=== PATIENT | female | born 1940 | race African-American/Black ===

== ENCOUNTER 2020-04-11 00:54 | Inpatient (IN) | payer MEDICARE, MEDICAID ==
[~2020-04-11] VITALS: Ht 167.6 cm; Wt 104.3 kg
[~2020-04-11 00:54] MED LIST: Blood Sugar Diagnostic TEST; DILT30TA38 PO; FERR325T23 PO; HYDR-3927 PO; Isosorb Dinit/Hydralazine Hcl PO; LOV30 SUBCUT; Lactulose PO; Sertraline Hcl PO
[2020-04-11] MEDS ORDERED: LORAZEPAM 2MG/ML CPJ IV ONE (02:30)
[2020-04-11] MEDS ORDERED: SODIUM CHLORIDE 0.9% 1,000 ML IV ONE ×2 (02:30→03:04)
[2020-04-11 02:39] LABS: CHLORIDE 100 mEq/L (98-107); HEMATOCRIT. 37.5 % (36.0-48.0); MEAN CORPUSCULAR HEMOGLOBIN 31.8 pg (28.0-32.0); MEAN CORPUSCULAR VOLUME 99.3 fL (81.0-99.0); MEAN PLATELET VOLUME 9.7 fl (7.4-10.4); PLATELET 230 x1000/uL (130-400); RED BLOOD CELL COUNT 3.78 mill/uL (4.2-5.4); RED CELL DISTRIBUTION WIDTH 15.2 % (11.6-14.6)
[2020-04-11 02:55] LABS: PLATELET ESTIMATE NORMAL
[2020-04-11] MEDS ORDERED: CLINDAMYCIN 600 MG in DEXTROSE 5% WATER 50 ML IV ONE (03:15)
[2020-04-11] MEDS ORDERED: INSULIN REGULAR (HUMULIN R) 300UNITS/3ML SUBCUT SCH (03:15)
[2020-04-11] MEDS ORDERED: VANCOMYCIN 1 G PREMIX 200 ML IV ONE (03:15)
[2020-04-11] MEDS ORDERED: PIPERACILLIN/TAZ 3.375G PREMIX 50 ML IV ONE (03:15)
[2020-04-11 03:28] LABS: PROTHROMBIN TIME 11.1 sec (9.6-11.0)
[2020-04-11] MEDS ORDERED: PIPERACILLIN/TAZOBACTAM 3.375 G in DEXT 5% WATER 100 ML IV SCH ×2 (03:45→16:00)
[2020-04-11] MEDS ORDERED: CLINDAMYCIN 600MG PREMIX 50 ML IV SCH (04:00)
[2020-04-11] MEDS ORDERED: ONDANSETRON HCL 4MG/2ML INJ IV PRN (09:00)
[2020-04-11 09:29] LABS: MEAN CORPUSCULAR VOLUME 96.4 fL (81.0-99.0); MEAN PLATELET VOLUME 8.6 fl (7.4-10.4); PLATELET 206 x1000/uL (130-400); RED BLOOD CELL COUNT 3.73 mill/uL (4.2-5.4); RED CELL DISTRIBUTION WIDTH 14.7 % (11.6-14.6)
[2020-04-11] MEDS: BLOOD SUGAR DIAGNOSTIC STRIP TEST SCH ×4 (09:57→21:31)
[2020-04-11] MEDS ORDERED: PIPERACILLIN/TAZ 3.375G PREMIX 50 ML IV SCH (10:15)
[2020-04-11] MEDS ORDERED: INSULIN GLARGINE UD 100 UNITS/ML SYR SUBCUT SCH (10:15)
[2020-04-11 10:25] LABS: NUCLEATED RED BLOOD CELLS 1 /100 WBC; PLATELET ESTIMATE NORMAL
[2020-04-11] MEDS: SODIUM CHLORIDE 0.9% 1,000 ML IV SCH ×2 (10:49→23:19)
[2020-04-11] MEDS: INSULIN LISPRO 100 UNITS/ML SUBCUT SCH ×3 (13:24→21:00)
[2020-04-11 13:42] LABS: CLARITY URINE CLOUDY (CLEAR); COLOR URINE YELLOW (YELLOW); KETONES URINE TRACE (NEGATIVE); LEUKOCYTE ESTERASE URINE 3+ (NEGATIVE); NITRITE URINE NEGATIVE (NEGATIVE); OCCULT BLOOD URINE 1+ (NEGATIVE); PH URINE 7.5 (4.5-8.0); PROTEIN URINE 1+ (NEGATIVE); SPECIFIC GRAVITY URINE 1.025 (1.005-1.030); UROBILINOGEN URINE 0.2 E.U./dL (0.2-1.0)
[2020-04-11] MEDS ORDERED: RISPERIDONE 0.5MG TABLET PO SCH (16:45)
[2020-04-11 17:35] LABS: BG BASE EXCESS 0.5 mmol/L (-2.0-2.0); BG CARBOXYHEMOGLOBIN 0.3 % (0.5-1.5); BG DEOXYHEMOGLOBIN 0.3 % (0.0-5.0); BG FRACTION INSPIRED OXYGEN 100; BG HCO3 ACT 25.4 mmol/L (22.0-26.0); BG METHEMOGLOBIN 0.3 % (0.0-1.5); BG OXYGEN SATURATION 99.7 % (92.0-98.5); BG OXYHEMOGLOBIN 99.1 % (94.0-97.0); BG PCO2 41.9 mmHg (35.0-45.0); BG PO2 392.4 mmHg (75.0-100.0); BG SAMPLE SITE RIGHT RADIAL; BG TOTAL HEMOGLOBIN 12.7 g/dL (12.0-18.0); BG VENT MODE MASK - NRB
[2020-04-11] MEDS ORDERED: PIPERACILLIN/TAZ 3.375G PREMIX 50 ML IV NR (21:42)
[2020-04-11 23:30] VITALS: BP 132/58
[2020-04-12] VITALS (11 sets, daily range): BP systolic 106–131; BP diastolic 54–88
[2020-04-12] MEDS: RISPERIDONE 0.5MG TABLET PO SCH ×2 (01:33→11:30)
[2020-04-12] MEDS: INSULIN GLARGINE UD 100 UNITS/ML SYR SUBCUT SCH ×3 (01:40→22:00)
[2020-04-12] MEDS: MORPHINE SULFATE 2 MG/ML CPJ (NOT FOR IM USE) IV PRN ×2 (03:57→16:46)
[2020-04-12] MEDS: BLOOD SUGAR DIAGNOSTIC STRIP TEST SCH ×4 (06:39→20:06)
[2020-04-12] MEDS: INSULIN LISPRO 100 UNITS/ML SUBCUT SCH ×4 (07:20→20:06)
[2020-04-12] MEDS: PIPERACILLIN/TAZOBACTAM 2.25 G in DEXTROSE 5% WATER 50 ML IV SCH ×3 (07:45→20:06)
[2020-04-12] MEDS: LORAZEPAM 2MG/ML CPJ IV PRN (08:04)
[2020-04-12] MEDS ORDERED: SODIUM BICARBONATE 4% (2.4MEQ) 5ML VIAL IV ONE (08:43)
[2020-04-12] MEDS ORDERED: LIDOCAINE HCL 1% 20ML VIAL (Pyxis) INJ ONE (08:43)
[2020-04-12] MEDS ORDERED: ENOXAPARIN 40MG/0.4ML SYR SUBCUT SCH (09:00)
[2020-04-12] MEDS ORDERED: VANCOMYCIN 1250MG in DEXTROSE 5% WATER 250ML IV SCH (12:00)
[2020-04-12 12:35] LABS: HEMATOCRIT. 38.7 % (36.0-48.0); HEMOGLOBIN. 12.9 g/dL (12.0-16.0); MEAN CORPUSCULAR VOLUME 95.9 fL (81.0-99.0); MEAN PLATELET VOLUME 9.3 fl (7.4-10.4); PLATELET 235 x1000/uL (130-400); RED BLOOD CELL COUNT 4.03 mill/uL (4.2-5.4); RED CELL DISTRIBUTION WIDTH 14.9 % (11.6-14.6)
[2020-04-12] MEDS: SODIUM CHLORIDE 0.9% 1,000 ML IV SCH (12:39)
[2020-04-12 13:33] LABS: ATYPICAL LYMPHOCYTES 1
[2020-04-12 13:34] LABS: PLATELET ESTIMATE NORMAL
[2020-04-12] MEDS ORDERED: IPRATROPIUM/ALBUTEROL 0.5-3(2.5)MG/3ML NEB HHN PRN (15:15)
[2020-04-12] MEDS ORDERED: DAPTOMYCIN 500 MG in SODIUM CHLORIDE 0.9% 50 ML IV SCH (20:00)
[2020-04-12] MEDS: ENOXAPARIN 30MG/0.3ML SYR SUBCUT SCH (20:06)
[2020-04-13] VITALS (10 sets, daily range): BP systolic 120–136; BP diastolic 61–95
[2020-04-13] MEDS: PIPERACILLIN/TAZOBACTAM 2.25 G in DEXTROSE 5% WATER 50 ML IV SCH (00:25)
[2020-04-13 08:03] LABS: CHLORIDE 111 mEq/L (98-107)
[2020-04-13] MEDS: ENOXAPARIN 30MG/0.3ML SYR SUBCUT SCH ×2 (09:00→21:06)
[2020-04-13] MEDS ORDERED: SODIUM BICARBONATE 4% (2.4MEQ) 5ML VIAL IV ONE (10:29)
[2020-04-13] MEDS ORDERED: LIDOCAINE HCL 1% 20ML VIAL (Pyxis) INJ ONE (10:29)
[2020-04-13] MEDS: BLOOD SUGAR DIAGNOSTIC STRIP TEST SCH ×3 (11:50→20:55)
[2020-04-13] MEDS ORDERED: VANCOMYCIN 1,000 MG in DEXT 5% WATER 250 ML IV SCH (13:00)
[2020-04-13] MEDS: RISPERIDONE 0.5MG TABLET PO SCH (14:05)
[2020-04-13] MEDS: INSULIN LISPRO 100 UNITS/ML SUBCUT SCH ×3 (14:06→21:00)
[2020-04-13] MEDS: CEFTRIAXONE 2 G in DEXTROSE 5% WATER 50 ML IV SCH (14:15)
[2020-04-13 16:54] LABS: HEMOGLOBIN. 13.3 g/dL (12.0-16.0); MEAN CORPUSCULAR HEMOGLOBIN 31.6 pg (28.0-32.0); MEAN CORPUSCULAR VOLUME 97.5 fL (81.0-99.0); MEAN PLATELET VOLUME 9.1 fl (7.4-10.4); PLATELET 188 x1000/uL (130-400)
[2020-04-13 17:21] LABS: PLATELET ESTIMATE NORMAL
[2020-04-13] MEDS: INSULIN GLARGINE UD 100 UNITS/ML SYR SUBCUT SCH (22:18)
[2020-04-14] VITALS (12 sets, daily range): BP systolic 96–135; BP diastolic 54–77
[2020-04-14] MEDS: BLOOD SUGAR DIAGNOSTIC STRIP TEST SCH ×4 (06:18→21:03)
[2020-04-14] MEDS: DEXTROSE 50% WATER 50ML SYRINGE IV PRN ×2 (06:21→11:52)
[2020-04-14] MEDS: SODIUM CHLORIDE 0.9% 1,000 ML IV SCH ×2 (06:51→21:10)
[2020-04-14 06:52] LABS: HEMATOCRIT. 44.6 % (36.0-48.0); HEMOGLOBIN. 14.4 g/dL (12.0-16.0); MEAN CORPUSCULAR HEMOGLOBIN 31.3 pg (28.0-32.0); MEAN CORPUSCULAR VOLUME 96.6 fL (81.0-99.0); MEAN PLATELET VOLUME 9.7 fl (7.4-10.4); PLATELET 190 x1000/uL (130-400); RED BLOOD CELL COUNT 4.61 mill/uL (4.2-5.4); RED CELL DISTRIBUTION WIDTH 15.3 % (11.6-14.6)
[2020-04-14] MEDS: INSULIN LISPRO 100 UNITS/ML SUBCUT SCH ×4 (07:20→21:00)
[2020-04-14] MEDS: RISPERIDONE 0.5MG TABLET PO SCH (09:16)
[2020-04-14] MEDS: ENOXAPARIN 30MG/0.3ML SYR SUBCUT SCH ×2 (09:26→21:09)
[2020-04-14] MEDS: INSULIN GLARGINE UD 100 UNITS/ML SYR SUBCUT SCH ×2 (10:00→22:12)
[2020-04-14 13:31] LABS: PLATELET ESTIMATE NORMAL
[2020-04-14] MEDS: CEFTRIAXONE 2 G in DEXTROSE 5% WATER 50 ML IV SCH (14:44)
[2020-04-15] VITALS (13 sets, daily range): BP systolic 93–113; BP diastolic 39–61
[2020-04-15] MEDS: ACETAMINOPHEN 325MG TABLET PO PRN ×2 (03:33→15:12)
[2020-04-15] MEDS: BLOOD SUGAR DIAGNOSTIC STRIP TEST SCH ×4 (06:29→20:48)
[2020-04-15] MEDS: INSULIN LISPRO 100 UNITS/ML SUBCUT SCH ×4 (07:20→21:51)
[2020-04-15] MEDS: RISPERIDONE 0.5MG TABLET PO SCH (09:23)
[2020-04-15] MEDS: ENOXAPARIN 30MG/0.3ML SYR SUBCUT SCH ×2 (09:23→20:48)
[2020-04-15] MEDS: INSULIN GLARGINE UD 100 UNITS/ML SYR SUBCUT SCH ×2 (10:00→21:52)
[2020-04-15 11:21] LABS: HEMATOCRIT. 40.4 % (36.0-48.0); HEMOGLOBIN. 13.1 g/dL (12.0-16.0); MEAN CORPUSCULAR HEMOGLOBIN 31.2 pg (28.0-32.0); MEAN CORPUSCULAR VOLUME 96.3 fL (81.0-99.0); MEAN PLATELET VOLUME 9.7 fl (7.4-10.4); PLATELET 185 x1000/uL (130-400); RED BLOOD CELL COUNT 4.19 mill/uL (4.2-5.4); RED CELL DISTRIBUTION WIDTH 15.2 % (11.6-14.6)
[2020-04-15 13:22] LABS: PLATELET ESTIMATE NORMAL
[2020-04-15] MEDS: DIPHENHYDRAMINE 25MG CAPSULE PO PRN (15:04)
[2020-04-15] MEDS: CEFTRIAXONE 2 G in DEXTROSE 5% WATER 50 ML IV SCH (15:04)
[2020-04-15] MEDS: SODIUM CHLORIDE 0.9% 1,000 ML IV SCH (15:23)
[2020-04-15] MEDS: DAPTOMYCIN 250 MG in SODIUM CHLORIDE 0.9% 50 ML IV SCH (18:00)
[2020-04-16] VITALS (10 sets, daily range): BP systolic 97–124; BP diastolic 48–75
[2020-04-16] MEDS: DIPHENHYDRAMINE 25MG CAPSULE PO PRN ×3 (01:05→10:09)
[2020-04-16] MEDS: BLOOD SUGAR DIAGNOSTIC STRIP TEST SCH ×4 (06:25→20:46)
[2020-04-16] MEDS: INSULIN LISPRO 100 UNITS/ML SUBCUT SCH ×4 (07:20→20:46)
[2020-04-16] MEDS: ENOXAPARIN 30MG/0.3ML SYR SUBCUT SCH ×2 (09:00→20:45)
[2020-04-16] MEDS: RISPERIDONE 0.5MG TABLET PO SCH (09:00)
[2020-04-16 09:23] LABS: HEMOGLOBIN. 12.2 g/dL (12.0-16.0); MEAN CORPUSCULAR HEMOGLOBIN 31.7 pg (28.0-32.0); MEAN CORPUSCULAR VOLUME 96.2 fL (81.0-99.0); MEAN PLATELET VOLUME 9.3 fl (7.4-10.4); PLATELET 166 x1000/uL (130-400); RED BLOOD CELL COUNT 3.85 mill/uL (4.2-5.4); RED CELL DISTRIBUTION WIDTH 15.6 % (11.6-14.6)
[2020-04-16] MEDS: INSULIN GLARGINE UD 100 UNITS/ML SYR SUBCUT SCH (10:00)
[2020-04-16] MEDS: ACETAMINOPHEN 325MG TABLET PO PRN (10:09)
[2020-04-16] MEDS: LORAZEPAM 2MG/ML CPJ IV PRN (10:09)
[2020-04-16] MEDS: CEFTRIAXONE 2 G in DEXTROSE 5% WATER 50 ML IV SCH (14:00)
[2020-04-16 14:30] LABS: PLATELET ESTIMATE NORMAL
[2020-04-16] MEDS: DAPTOMYCIN 250 MG in SODIUM CHLORIDE 0.9% 50 ML IV SCH (17:09)
[2020-04-16] MEDS: SODIUM CHLORIDE 0.9% 1,000 ML IV SCH (17:10)
[2020-04-17] VITALS (12 sets, daily range): BP systolic 104–150; BP diastolic 46–103
[2020-04-17] MEDS: INSULIN GLARGINE UD 100 UNITS/ML SYR SUBCUT SCH ×3 (00:08→22:30)
[2020-04-17] MEDS: ACETAMINOPHEN 325MG TABLET PO PRN ×2 (06:49→13:36)
[2020-04-17] MEDS: BLOOD SUGAR DIAGNOSTIC STRIP TEST SCH ×4 (06:52→22:30)
[2020-04-17] MEDS: INSULIN LISPRO 100 UNITS/ML SUBCUT SCH ×4 (06:53→22:30)
[2020-04-17] MEDS: SODIUM CHLORIDE 0.9% 1,000 ML IV SCH (08:22)
[2020-04-17] MEDS: RISPERIDONE 0.5MG TABLET PO SCH ×2 (09:00→09:25)
[2020-04-17] MEDS: ENOXAPARIN 30MG/0.3ML SYR SUBCUT SCH ×2 (09:25→21:00)
[2020-04-17] MEDS ORDERED: LIDOCAINE HCL 1% 20ML VIAL (Pyxis) INJ ONE (11:03)
[2020-04-17] MEDS: CEFTRIAXONE 2 G in DEXTROSE 5% WATER 50 ML IV SCH (13:11)
[2020-04-17] MEDS: DAPTOMYCIN 250 MG in SODIUM CHLORIDE 0.9% 50 ML IV SCH (17:38)
[2020-04-17] MEDS: DEXTROSE 50% WATER 50ML SYRINGE IV PRN (23:41)
[2020-04-18] VITALS (11 sets, daily range): BP systolic 92–147; BP diastolic 52–87
[2020-04-18] MEDS: SODIUM CHLORIDE 0.9% 1,000 ML IV SCH (04:53)
[2020-04-18] MEDS: INSULIN LISPRO 100 UNITS/ML SUBCUT SCH ×4 (06:02→21:00)
[2020-04-18] MEDS: BLOOD SUGAR DIAGNOSTIC STRIP TEST SCH ×4 (06:02→21:23)
[2020-04-18] MEDS: RISPERIDONE 0.5MG TABLET PO SCH (09:07)
[2020-04-18] MEDS: ENOXAPARIN 30MG/0.3ML SYR SUBCUT SCH ×2 (09:08→21:23)
[2020-04-18] MEDS: INSULIN GLARGINE UD 100 UNITS/ML SYR SUBCUT SCH ×2 (10:27→21:23)
[2020-04-18 13:37] LABS: HEMATOCRIT. 35.6 % (36.0-48.0); MEAN CORPUSCULAR HEMOGLOBIN 32.2 pg (28.0-32.0); MEAN PLATELET VOLUME 8.6 fl (7.4-10.4); PLATELET 143 x1000/uL (130-400); RED BLOOD CELL COUNT 3.71 mill/uL (4.2-5.4); RED CELL DISTRIBUTION WIDTH 15.6 % (11.6-14.6)
[2020-04-18] MEDS: CEFTRIAXONE 2 G in DEXTROSE 5% WATER 50 ML IV SCH (14:39)
[2020-04-18 17:45] LABS: PLATELET ESTIMATE NORMAL
[2020-04-18] MEDS: DAPTOMYCIN 250 MG in SODIUM CHLORIDE 0.9% 50 ML IV SCH (17:47)
[2020-04-18] MEDS: DIPHENHYDRAMINE 25MG CAPSULE PO PRN (23:40)
[2020-04-19] VITALS (9 sets, daily range): BP systolic 94–118; BP diastolic 53–87
[2020-04-19] MEDS ORDERED: LORAZEPAM 2MG/ML CPJ IV PRN ×3 (00:07→15:00)
[2020-04-19] MEDS: SODIUM CHLORIDE 0.9% 1,000 ML IV SCH (00:12)
[2020-04-19] MEDS ORDERED: LORAZEPAM 2MG/ML CPJ IM PRN ×2 (00:30→00:45)
[2020-04-19] MEDS: DEXTROSE 50% WATER 50ML SYRINGE IV PRN ×2 (06:41→06:56)
[2020-04-19] MEDS: BLOOD SUGAR DIAGNOSTIC STRIP TEST SCH ×4 (06:50→20:58)
[2020-04-19] MEDS: INSULIN LISPRO 100 UNITS/ML SUBCUT SCH ×4 (07:20→20:57)
[2020-04-19 07:22] LABS: HEMATOCRIT. 39.3 % (36.0-48.0); HEMOGLOBIN. 13.1 g/dL (12.0-16.0); MEAN CORPUSCULAR HEMOGLOBIN 31.9 pg (28.0-32.0); MEAN CORPUSCULAR VOLUME 95.7 fL (81.0-99.0); MEAN PLATELET VOLUME 8.9 fl (7.4-10.4); PLATELET 123 x1000/uL (130-400); RED BLOOD CELL COUNT 4.11 mill/uL (4.2-5.4); RED CELL DISTRIBUTION WIDTH 15.4 % (11.6-14.6)
[2020-04-19] MEDS: RISPERIDONE 0.5MG TABLET PO SCH (07:58)
[2020-04-19] MEDS: ENOXAPARIN 30MG/0.3ML SYR SUBCUT SCH ×2 (07:59→20:57)
[2020-04-19] MEDS ORDERED: HALOPERIDOL LACTATE 5MG/ML VIAL IM PRN (09:15)
[2020-04-19] MEDS ORDERED: SODIUM BICARBONATE 4% (2.4MEQ) 5ML VIAL IV ONE (13:11)
[2020-04-19] MEDS ORDERED: LIDOCAINE HCL 1% 20ML VIAL (Pyxis) INJ ONE (13:11)
[2020-04-19 15:31] LABS: NUCLEATED RED BLOOD CELLS 1 /100 WBC; PLATELET ESTIMATE SLIGHTLY DECREASED
[2020-04-19] MEDS: DAPTOMYCIN 250 MG in SODIUM CHLORIDE 0.9% 50 ML IV SCH (17:06)
[2020-04-20] VITALS (7 sets, daily range): BP systolic 92–117; BP diastolic 37–63
[2020-04-20] MEDS: BLOOD SUGAR DIAGNOSTIC STRIP TEST SCH ×2 (06:24→11:11)
[2020-04-20] MEDS: INSULIN LISPRO 100 UNITS/ML SUBCUT SCH ×2 (06:25→11:11)
[2020-04-20 07:38] LABS: HEMATOCRIT. 40.7 % (36.0-48.0); HEMOGLOBIN. 13.5 g/dL (12.0-16.0); MEAN CORPUSCULAR HEMOGLOBIN 32.1 pg (28.0-32.0); MEAN CORPUSCULAR VOLUME 96.7 fL (81.0-99.0); PLATELET 97 x1000/uL (130-400); RED BLOOD CELL COUNT 4.21 mill/uL (4.2-5.4); RED CELL DISTRIBUTION WIDTH 15.6 % (11.6-14.6)
[2020-04-20] MEDS: ENOXAPARIN 30MG/0.3ML SYR SUBCUT SCH (08:26)
[2020-04-20 12:35] LABS: ATYPICAL LYMPHOCYTES 1; NUCLEATED RED BLOOD CELLS 1 /100 WBC; PLATELET ESTIMATE DECREASED
== END 2020-04-20 13:24 | DRG 871 ==
LOC: ER 00:54 → 3WST 05:46 → ENRESERV 21:51
PROVIDERS: ADMIT Internal Medicine; ATTEND Internal Medicine
PROC: 02HV33Z Insertion of Infusion Device into Superior Vena Cava, Percutaneous Approach (ICD-10-PCS; principal; 2020-04-12)
PROC: B548ZZA Ultrasonography of Superior Vena Cava, Guidance (ICD-10-PCS; 2020-04-12)
PROC: 05H533Z Insertion of Infusion Device into Right Subclavian Vein, Percutaneous Approach (ICD-10-PCS; 2020-04-13)
PROC: B546ZZA Ultrasonography of Right Subclavian Vein, Guidance (ICD-10-PCS; 2020-04-13)
PROC: 02HV33Z Insertion of Infusion Device into Superior Vena Cava, Percutaneous Approach (ICD-10-PCS; 2020-04-17)
PROC: B548ZZA Ultrasonography of Superior Vena Cava, Guidance (ICD-10-PCS; 2020-04-17)
PROC: 02HV33Z Insertion of Infusion Device into Superior Vena Cava, Percutaneous Approach (ICD-10-PCS; 2020-04-19)
PROC: B548ZZA Ultrasonography of Superior Vena Cava, Guidance (ICD-10-PCS; 2020-04-19)
PROC: B5181ZA Fluoroscopy of Superior Vena Cava using Low Osmolar Contrast, Guidance (ICD-10-PCS; 2020-04-19)
DX: A41.9 Sepsis, unspecified organism (principal); E43 Unspecified severe protein-calorie malnutrition; J96.00 Acute respiratory failure, unspecified whether with hypoxia or hypercapnia; N17.0 Acute kidney failure with tubular necrosis; L03.115 Cellulitis of right lower limb; L03.116 Cellulitis of left lower limb; L12.0 Bullous pemphigoid; E87.1 Hypo-osmolality and hyponatremia; E87.2 Acidosis; N39.0 Urinary tract infection, site not specified; I50.32 Chronic diastolic (congestive) heart failure; I13.0 Hypertensive heart and chronic kidney disease with heart failure and stage 1 through stage 4 chronic kidney disease, or unspecified chronic kidney disease; E11.22 Type 2 diabetes mellitus with diabetic chronic kidney disease; D72.1 Eosinophilia; E87.5 Hyperkalemia; N18.9 Chronic kidney disease, unspecified; E11.65 Type 2 diabetes mellitus with hyperglycemia; E66.01 Morbid (severe) obesity due to excess calories; S80.822A Blister (nonthermal), left lower leg, initial encounter; D63.8 Anemia in other chronic diseases classified elsewhere; Z20.828 Contact with and (suspected) exposure to other viral communicable diseases; B96.4 Proteus (mirabilis) (morganii) as the cause of diseases classified elsewhere; S80.821A Blister (nonthermal), right lower leg, initial encounter; X58.XXXA Exposure to other specified factors, initial encounter; Y93.89 Activity, other specified; Y92.89 Other specified places as the place of occurrence of the external cause; Z68.37 Body mass index [BMI] 37.0-37.9, adult; Y99.8 Other external cause status; Z79.899 Other long term (current) drug therapy; Z78.1 Physical restraint status
CPT/HCPCS: 36415; 36573; 36600; 71045; 73700; 76937; 80048; 80053; 81003; 82010; 82140; 82375; 82805; 82962; 83036; 83605; 84134; 84145; 85025; 87077; 87186; 92610; 93005; 93306; 96365; 99291; C1725; C1887; J0696; J0878; J1630; J1650; J1815; J2060; J2270; J2543; J3370; J3490; J7030; J7060; Q0163; U0003-CS

== ENCOUNTER 2020-10-21 13:54 | Emergency (ER) | payer MEDICARE, MEDICAID ==
[~2020-10-21] VITALS: Ht 167.6 cm; Wt 82.0 kg
[2020-10-21] MEDS ORDERED: SODIUM CHLORIDE 0.9% 1,000 ML IV ONE (14:30)
[2020-10-21 14:54] LABS: HEMOGLOBIN. 10.1 g/dL (12.0-16.0); MEAN CORPUSCULAR HEMOGLOBIN 31.1 pg (28.0-32.0); MEAN CORPUSCULAR VOLUME 95.8 fL (81.0-99.0); MEAN PLATELET VOLUME 9.3 fl (7.4-10.4); PLATELET 152 x1000/uL (130-400); RED BLOOD CELL COUNT 3.24 mill/uL (4.2-5.4); RED CELL DISTRIBUTION WIDTH 19.1 % (11.6-14.6)
[2020-10-21 14:57] LABS: CHLORIDE 101 mEq/L (98-107)
[2020-10-21 15:01] LABS: INR 1.1; PROTHROMBIN TIME 11.7 sec (9.6-11.0)
[2020-10-21] MEDS ORDERED: HYDROCODONE/ACETAMINOPHEN 5/325MG TABLET PO ONE (15:45)
[2020-10-21 15:58] LABS: PLATELET ESTIMATE NORMAL
[2020-10-21 18:00] VITALS: BP 152/72
== END 2020-10-21 18:00 | disposition home or self-care (01) ==
LOC: ER 13:54 → CANBEDREQ 21:40
DX: G93.40 Encephalopathy, unspecified (principal); I10 Essential (primary) hypertension; E11.9 Type 2 diabetes mellitus without complications; Z79.899 Other long term (current) drug therapy
CPT/HCPCS: 36415; 70450; 71045; 80053; 85025; 85610; 93005; 96360; 96361; 99285; J7030

== ENCOUNTER 2020-10-24 02:33 | Inpatient (IN) | payer MEDICARE, MEDICAID ==
[~2020-10-24] VITALS: Ht 165.1 cm; Wt 101.6 kg
[2020-10-24] VITALS (8 sets, daily range): BP systolic 74–140; BP diastolic 49–77
[2020-10-24] MEDS ORDERED: SODIUM CHLORIDE 0.9% 1000ML BAG (SEPSIS BOLUS) IV ONE (03:45)
[2020-10-24] MEDS ORDERED: VANCOMYCIN 1 G PREMIX 200 ML IV SCH ×2 (03:45→18:00)
[2020-10-24] MEDS ORDERED: PIPERACILLIN/TAZ 3.375G PREMIX 50 ML IV ONE (03:45)
[2020-10-24 04:53] LABS: HEMATOCRIT. 30.7 % (36.0-48.0); HEMOGLOBIN. 9.9 g/dL (12.0-16.0); MEAN CORPUSCULAR HEMOGLOBIN 30.6 pg (28.0-32.0); MEAN CORPUSCULAR VOLUME 95.2 fL (81.0-99.0); MEAN PLATELET VOLUME 9.9 fl (7.4-10.4); PLATELET 133 x1000/uL (130-400); RED BLOOD CELL COUNT 3.22 mill/uL (4.2-5.4); RED CELL DISTRIBUTION WIDTH 19.1 % (11.6-14.6)
[2020-10-24 04:56] LABS: CHLORIDE 101 mEq/L (98-107)
[2020-10-24 05:17] LABS: CLARITY URINE TURBID (CLEAR); COLOR URINE ORANGE (YELLOW); KETONES URINE NEGATIVE (NEGATIVE); LEUKOCYTE ESTERASE URINE NEGATIVE (NEGATIVE); NITRITE URINE POSITIVE (NEGATIVE); OCCULT BLOOD URINE 1+ (NEGATIVE); PROTEIN URINE 1+ (NEGATIVE); UROBILINOGEN URINE 0.2 E.U./dL (0.2-1.0)
[2020-10-24 05:59] LABS: NUCLEATED RED BLOOD CELLS 1 /100 WBC
[2020-10-24] MEDS ORDERED: DOPAMINE 400MG/250ML PREMIX 250 ML IV SCH ×2 (06:00→14:30)
[2020-10-24 06:02] LABS: PLATELET ESTIMATE NORMAL
[2020-10-24] MEDS ORDERED: ONDANSETRON HCL 4MG/2ML INJ IV PRN (18:00)
[2020-10-24] MEDS ORDERED: ACETAMINOPHEN 325MG TABLET PO PRN (18:00)
[2020-10-24] MEDS ORDERED: PIPERACILLIN/TAZOBACTAM 3.375 G in DEXTROSE 5% WATER 50 ML IV SCH (18:00)
[2020-10-24] MEDS ORDERED: SODIUM POLYSTYRENE SULFONATE 15 G/60 ML BOT PO SCH (18:00)
[2020-10-24] MEDS: SODIUM CHLORIDE 0.9% 1,000 ML IV SCH (18:54)
[2020-10-24] MEDS: PIPERACILLIN/TAZ 3.375G PREMIX 50 ML IV SCH (18:54)
[2020-10-24] MEDS: DOPAMINE 400 MG PREMIX 250 ML IV PRN (21:37)
[2020-10-24] MEDS: HEPARIN 5000 UNITS/ML VIAL SUBCUT SCH (21:57)
[2020-10-25] VITALS (84 sets, daily range): BP systolic 64–156; BP diastolic 22–113
[2020-10-25] MEDS: PIPERACILLIN/TAZ 3.375G PREMIX 50 ML IV SCH ×2 (00:53→05:10)
[2020-10-25] MEDS: DOPAMINE 400 MG PREMIX 250 ML IV PRN ×2 (04:16→09:30)
[2020-10-25 06:30] LABS: HEMATOCRIT. 31.3 % (36.0-48.0); HEMOGLOBIN. 9.9 g/dL (12.0-16.0); MEAN CORPUSCULAR HEMOGLOBIN 30.9 pg (28.0-32.0); MEAN CORPUSCULAR VOLUME 97.7 fL (81.0-99.0); MEAN PLATELET VOLUME 10.7 fl (7.4-10.4); PLATELET 108 x1000/uL (130-400); RED BLOOD CELL COUNT 3.21 mill/uL (4.2-5.4); RED CELL DISTRIBUTION WIDTH 19.9 % (11.6-14.6)
[2020-10-25 06:39] LABS: CHLORIDE 102 mEq/L (98-107)
[2020-10-25] MEDS: HEPARIN 5000 UNITS/ML VIAL SUBCUT SCH ×2 (08:05→20:52)
[2020-10-25] MEDS: SODIUM CHLORIDE 0.9% 1,000 ML IV SCH (09:31)
[2020-10-25] MEDS: BLOOD SUGAR DIAGNOSTIC STRIP TEST SCH ×3 (11:45→21:26)
[2020-10-25] MEDS ORDERED: FUROSEMIDE 40MG/4ML VIAL IVP NR (11:45)
[2020-10-25] MEDS ORDERED: DEXTROSE 50% WATER 50ML SYRINGE IV PRN (11:45)
[2020-10-25] MEDS: INSULIN LISPRO 100 UNITS/ML SUBCUT SCH ×3 (12:00→21:00)
[2020-10-25] MEDS: PIPERACILLIN/TAZOBACTAM 3.375 G in DEXT 5% WATER 100 ML IV SCH ×2 (12:50→17:22)
[2020-10-25] MEDS: HALOPERIDOL LACTATE 5MG/ML VIAL IM PRN (12:55)
[2020-10-25] MEDS ORDERED: RISPERIDONE 0.5MG TABLET PO SCH (13:00)
[2020-10-25 13:33] LABS: PLATELET ESTIMATE DECREASED
[2020-10-25] MEDS: HALOPERIDOL LACTATE 5MG/ML VIAL IM NR ×2 (14:00→17:30)
[2020-10-25] MEDS: RISPERIDONE 0.5MG TABLET PO NR ×2 (15:08→15:30)
[2020-10-25] MEDS: DIPHENHYDRAMINE 50MG/ML VIAL IV PRN ×2 (15:12→21:35)
[2020-10-25] MEDS: VANCOMYCIN 1 G PREMIX 200 ML IV SCH (15:30)
[2020-10-25] MEDS: DOPAMINE 400MG/250ML PREMIX 250 ML IV PRN (16:52)
[2020-10-25] MEDS: RISPERIDONE 1MG TABLET PO SCH (17:26)
[2020-10-26] VITALS (89 sets, daily range): BP systolic 63–182; BP diastolic 23–104
[2020-10-26] MEDS: PIPERACILLIN/TAZOBACTAM 3.375 G in DEXT 5% WATER 100 ML IV SCH ×5 (00:08→23:56)
[2020-10-26] MEDS: DOPAMINE 400MG/250ML PREMIX 250 ML IV PRN ×3 (00:08→21:33)
[2020-10-26] MEDS: TRAZODONE HCL 50MG TABLET PO PRN (01:00)
[2020-10-26] MEDS: HALOPERIDOL LACTATE 5MG/ML VIAL IM PRN ×2 (03:35→13:06)
[2020-10-26 07:47] LABS: HEMATOCRIT. 28.4 % (36.0-48.0); HEMOGLOBIN. 9.1 g/dL (12.0-16.0); MEAN CORPUSCULAR HEMOGLOBIN 30.6 pg (28.0-32.0); MEAN CORPUSCULAR VOLUME 95.7 fL (81.0-99.0); MEAN PLATELET VOLUME 9.9 fl (7.4-10.4); PLATELET 103 x1000/uL (130-400); RED BLOOD CELL COUNT 2.96 mill/uL (4.2-5.4); RED CELL DISTRIBUTION WIDTH 19.4 % (11.6-14.6)
[2020-10-26 07:48] LABS: CHLORIDE 103 mEq/L (98-107)
[2020-10-26] MEDS: VANCOMYCIN 1 G PREMIX 200 ML IV SCH (07:57)
[2020-10-26] MEDS: INSULIN LISPRO 100 UNITS/ML SUBCUT SCH ×4 (07:58→21:00)
[2020-10-26] MEDS: BLOOD SUGAR DIAGNOSTIC STRIP TEST SCH ×4 (07:58→21:02)
[2020-10-26] MEDS: RISPERIDONE 1MG TABLET PO SCH ×2 (08:02→16:09)
[2020-10-26] MEDS: FUROSEMIDE 40MG/4ML VIAL IVP SCH (08:45)
[2020-10-26] MEDS: HEPARIN 5000 UNITS/ML VIAL SUBCUT SCH ×2 (08:46→21:02)
[2020-10-26] MEDS ORDERED: RISPERIDONE 1MG TABLET PO NR (09:30)
[2020-10-26 14:14] LABS: PLATELET ESTIMATE DECREASED
[2020-10-26] MEDS: HYDROXYZINE 25MG TABLET PO SCH ×2 (15:27→23:56)
[2020-10-27] VITALS (90 sets, daily range): BP systolic 76–163; BP diastolic 29–92
[2020-10-27] MEDS: MEROPENEM 1,000 MG in SODIUM CHLORIDE 0.9% 100 ML IV SCH ×3 (02:24→18:12)
[2020-10-27] MEDS: HYDROCODONE/ACETAMINOPHEN 5/325MG TABLET PO PRN ×2 (04:56→09:29)
[2020-10-27] MEDS: HYDROXYZINE 25MG TABLET PO SCH ×3 (05:45→18:12)
[2020-10-27 06:22] LABS: CHLORIDE 101 mEq/L (98-107)
[2020-10-27 06:24] LABS: HEMOGLOBIN. 9.4 g/dL (12.0-16.0); MEAN CORPUSCULAR VOLUME 95.2 fL (81.0-99.0); MEAN PLATELET VOLUME 8.9 fl (7.4-10.4); PLATELET 92 x1000/uL (130-400); RED BLOOD CELL COUNT 3.04 mill/uL (4.2-5.4); RED CELL DISTRIBUTION WIDTH 19.4 % (11.6-14.6)
[2020-10-27] MEDS: VANCOMYCIN 1 G PREMIX 200 ML IV SCH (07:48)
[2020-10-27] MEDS: BLOOD SUGAR DIAGNOSTIC STRIP TEST SCH ×3 (08:34→18:03)
[2020-10-27] MEDS: DOPAMINE 400MG/250ML PREMIX 250 ML IV PRN ×2 (08:48→19:30)
[2020-10-27] MEDS: RISPERIDONE 1MG TABLET PO SCH ×2 (08:49→16:11)
[2020-10-27] MEDS: HEPARIN 5000 UNITS/ML VIAL SUBCUT SCH (08:49)
[2020-10-27] MEDS: FUROSEMIDE 40MG/4ML VIAL IVP SCH (08:49)
[2020-10-27] MEDS: DIPHENHYDRAMINE 50MG/ML VIAL IV PRN ×2 (08:49→21:22)
[2020-10-27] MEDS: INSULIN LISPRO 100 UNITS/ML SUBCUT SCH ×3 (08:53→18:13)
[2020-10-27 09:27] LABS: PLATELET ESTIMATE DECREASED
[2020-10-27] MEDS: MIDODRINE HCL 5MG TABLET PO SCH ×2 (12:04→16:11)
[2020-10-27] MEDS: CLOBETASOL 0.05 % CREAM 15GM TOP SCH (21:03)
[2020-10-28] VITALS (81 sets, daily range): BP systolic 69–158; BP diastolic 36–109
[2020-10-28] MEDS: HYDROXYZINE 25MG TABLET PO SCH ×4 (01:08→17:36)
[2020-10-28] MEDS: MEROPENEM 1,000 MG in SODIUM CHLORIDE 0.9% 100 ML IV SCH ×3 (01:09→17:36)
[2020-10-28] MEDS: INSULIN LISPRO 100 UNITS/ML SUBCUT SCH ×4 (05:40→17:39)
[2020-10-28] MEDS: BLOOD SUGAR DIAGNOSTIC STRIP TEST SCH ×4 (05:40→17:40)
[2020-10-28 06:06] LABS: HEMATOCRIT. 32.1 % (36.0-48.0); HEMOGLOBIN. 10.6 g/dL (12.0-16.0); MEAN CORPUSCULAR HEMOGLOBIN 30.9 pg (28.0-32.0); MEAN CORPUSCULAR VOLUME 93.9 fL (81.0-99.0); MEAN PLATELET VOLUME 8.8 fl (7.4-10.4); PLATELET 109 x1000/uL (130-400); RED BLOOD CELL COUNT 3.41 mill/uL (4.2-5.4); RED CELL DISTRIBUTION WIDTH 19.4 % (11.6-14.6)
[2020-10-28 06:10] LABS: CHLORIDE 103 mEq/L (98-107)
[2020-10-28] MEDS: DOPAMINE 400MG/250ML PREMIX 250 ML IV PRN (08:04)
[2020-10-28] MEDS: FUROSEMIDE 40MG/4ML VIAL IVP SCH (08:06)
[2020-10-28] MEDS: RISPERIDONE 1MG TABLET PO SCH ×2 (08:06→17:39)
[2020-10-28] MEDS: MIDODRINE HCL 5MG TABLET PO SCH ×3 (08:07→21:53)
[2020-10-28] MEDS: VANCOMYCIN 1 G PREMIX 200 ML IV SCH (08:07)
[2020-10-28] MEDS: CLOBETASOL 0.05 % CREAM 15GM TOP SCH ×2 (08:07→21:54)
[2020-10-28 09:25] LABS: PLATELET ESTIMATE DECREASED
[2020-10-28] MEDS ORDERED: MIDODRINE HCL 5MG TABLET PO SCH (10:10)
[2020-10-28] MEDS: HEPARIN 5000 UNITS/ML VIAL SUBCUT SCH (21:54)
[2020-10-29] VITALS (41 sets, daily range): BP systolic 87–160; BP diastolic 44–91
[2020-10-29] MEDS: BLOOD SUGAR DIAGNOSTIC STRIP TEST SCH ×4 (00:56→17:59)
[2020-10-29] MEDS: HYDROXYZINE 25MG TABLET PO SCH ×4 (01:00→17:58)
[2020-10-29] MEDS: MEROPENEM 1,000 MG in SODIUM CHLORIDE 0.9% 100 ML IV SCH ×3 (03:28→17:58)
[2020-10-29] MEDS: MIDODRINE HCL 5MG TABLET PO SCH ×3 (05:44→21:20)
[2020-10-29] MEDS: INSULIN LISPRO 100 UNITS/ML SUBCUT SCH ×4 (05:46→17:59)
[2020-10-29 06:30] LABS: HEMATOCRIT. 30.4 % (36.0-48.0); MEAN CORPUSCULAR VOLUME 94.2 fL (81.0-99.0); MEAN PLATELET VOLUME 9.8 fl (7.4-10.4); PLATELET 103 x1000/uL (130-400); RED BLOOD CELL COUNT 3.23 mill/uL (4.2-5.4); RED CELL DISTRIBUTION WIDTH 18.8 % (11.6-14.6)
[2020-10-29 06:32] LABS: CHLORIDE 102 mEq/L (98-107)
[2020-10-29] MEDS: RISPERIDONE 1MG TABLET PO SCH ×2 (09:11→17:58)
[2020-10-29] MEDS: FUROSEMIDE 40MG/4ML VIAL IVP SCH (09:12)
[2020-10-29] MEDS: VANCOMYCIN 1 G PREMIX 200 ML IV SCH (09:12)
[2020-10-29] MEDS: CLOBETASOL 0.05 % CREAM 15GM TOP SCH ×2 (09:14→20:11)
[2020-10-29] MEDS: HEPARIN 5000 UNITS/ML VIAL SUBCUT SCH ×2 (09:15→20:11)
[2020-10-29 09:27] LABS: PLATELET ESTIMATE DECREASED
[2020-10-30] VITALS (33 sets, daily range): BP systolic 74–123; BP diastolic 23–65
[2020-10-30] MEDS: NYSTATIN POWDER 15GM TOP SCH ×4 (00:03→18:22)
[2020-10-30] MEDS: HYDROXYZINE 25MG TABLET PO SCH ×4 (00:03→18:22)
[2020-10-30] MEDS: INSULIN LISPRO 100 UNITS/ML SUBCUT SCH ×4 (00:04→18:23)
[2020-10-30] MEDS: BLOOD SUGAR DIAGNOSTIC STRIP TEST SCH ×4 (00:04→18:10)
[2020-10-30] MEDS: MEROPENEM 1,000 MG in SODIUM CHLORIDE 0.9% 100 ML IV SCH ×3 (02:05→18:23)
[2020-10-30] MEDS: MIDODRINE HCL 5MG TABLET PO SCH ×3 (06:12→22:54)
[2020-10-30 06:47] LABS: CHLORIDE 103 mEq/L (98-107)
[2020-10-30] MEDS: RISPERIDONE 1MG TABLET PO SCH ×2 (09:10→18:27)
[2020-10-30] MEDS: FUROSEMIDE 40MG/4ML VIAL IVP SCH (09:10)
[2020-10-30] MEDS: HEPARIN 5000 UNITS/ML VIAL SUBCUT SCH ×2 (09:11→22:53)
[2020-10-30] MEDS: CLOBETASOL 0.05 % CREAM 15GM TOP SCH ×2 (09:12→22:52)
[2020-10-30] MEDS: VANCOMYCIN 750 MG PREMIX 150 ML IV SCH (12:48)
[2020-10-30] MEDS ORDERED: NOREPINEPHRINE 8 MG in DEXT 5% WATER 242 ML IV PRN (13:00)
[2020-10-30] MEDS ORDERED: SODIUM CHLORIDE 0.9% 500 ML IV ONE (13:45)
[2020-10-30] MEDS: METOCLOPRAMIDE HCL 10MG/2ML VIAL IV SCH ×2 (14:00→22:54)
[2020-10-30] MEDS: TRAZODONE HCL 50MG TABLET PO PRN (22:56)
[2020-10-31] VITALS (57 sets, daily range): BP systolic 90–132; BP diastolic 44–67
[2020-10-31] MEDS: HYDROXYZINE 25MG TABLET PO SCH ×3 (02:25→12:47)
[2020-10-31] MEDS: BLOOD SUGAR DIAGNOSTIC STRIP TEST SCH ×4 (02:25→18:00)
[2020-10-31] MEDS: INSULIN LISPRO 100 UNITS/ML SUBCUT SCH ×4 (02:35→18:37)
[2020-10-31] MEDS: MEROPENEM 1,000 MG in SODIUM CHLORIDE 0.9% 100 ML IV SCH ×3 (02:39→18:35)
[2020-10-31] MEDS: METOCLOPRAMIDE HCL 10MG/2ML VIAL IV SCH ×3 (05:51→21:43)
[2020-10-31] MEDS: MIDODRINE HCL 5MG TABLET PO SCH ×3 (05:52→21:44)
[2020-10-31 07:28] LABS: CHLORIDE 105 mEq/L (98-107)
[2020-10-31 07:37] LABS: HEMATOCRIT. 27.7 % (36.0-48.0); MEAN CORPUSCULAR HEMOGLOBIN 30.4 pg (28.0-32.0); MEAN CORPUSCULAR VOLUME 94.1 fL (81.0-99.0); MEAN PLATELET VOLUME 10.3 fl (7.4-10.4); PLATELET 100 x1000/uL (130-400); RED BLOOD CELL COUNT 2.94 mill/uL (4.2-5.4); RED CELL DISTRIBUTION WIDTH 19.3 % (11.6-14.6)
[2020-10-31] MEDS: NYSTATIN POWDER 15GM TOP SCH ×3 (09:51→17:00)
[2020-10-31] MEDS: HEPARIN 5000 UNITS/ML VIAL SUBCUT SCH ×2 (09:52→21:43)
[2020-10-31] MEDS: RISPERIDONE 1MG TABLET PO SCH ×2 (09:53→18:35)
[2020-10-31] MEDS: FUROSEMIDE 40MG/4ML VIAL IVP SCH (09:53)
[2020-10-31] MEDS: CLOBETASOL 0.05 % CREAM 15GM TOP SCH ×2 (09:54→21:43)
[2020-10-31 10:45] LABS: NUCLEATED RED BLOOD CELLS 1 /100 WBC; PLATELET ESTIMATE DECREASED
[2020-10-31] MEDS: VANCOMYCIN 750 MG PREMIX 150 ML IV SCH (12:00)
[2020-11-01] VITALS (11 sets, daily range): BP systolic 93–145; BP diastolic 42–78
[2020-11-01] MEDS: BLOOD SUGAR DIAGNOSTIC STRIP TEST SCH ×4 (00:01→17:46)
[2020-11-01] MEDS: INSULIN LISPRO 100 UNITS/ML SUBCUT SCH ×4 (00:07→17:58)
[2020-11-01] MEDS: MEROPENEM 1,000 MG in SODIUM CHLORIDE 0.9% 100 ML IV SCH ×3 (01:18→17:58)
[2020-11-01] MEDS: METOCLOPRAMIDE HCL 10MG/2ML VIAL IV SCH ×3 (06:09→21:35)
[2020-11-01] MEDS: MIDODRINE HCL 5MG TABLET PO SCH ×3 (06:12→21:37)
[2020-11-01 06:35] LABS: HEMOGLOBIN. 9.7 g/dL (12.0-16.0); MEAN CORPUSCULAR HEMOGLOBIN 30.6 pg (28.0-32.0); MEAN CORPUSCULAR VOLUME 94.8 fL (81.0-99.0); MEAN PLATELET VOLUME 9.7 fl (7.4-10.4); PLATELET 97 x1000/uL (130-400); RED BLOOD CELL COUNT 3.17 mill/uL (4.2-5.4); RED CELL DISTRIBUTION WIDTH 18.6 % (11.6-14.6)
[2020-11-01 06:44] LABS: CHLORIDE 106 mEq/L (98-107)
[2020-11-01] MEDS: NYSTATIN POWDER 15GM TOP SCH ×3 (09:44→18:00)
[2020-11-01] MEDS: RISPERIDONE 1MG TABLET PO SCH ×2 (09:44→17:57)
[2020-11-01] MEDS: HEPARIN 5000 UNITS/ML VIAL SUBCUT SCH (09:44)
[2020-11-01] MEDS: CLOBETASOL 0.05 % CREAM 15GM TOP SCH ×2 (09:45→21:28)
[2020-11-01] MEDS: VANCOMYCIN 1 G PREMIX 200 ML IV SCH (11:17)
[2020-11-01] MEDS ORDERED: HYDROXYZINE 25MG TABLET PO PRN (12:15)
[2020-11-01 13:59] LABS: PLATELET ESTIMATE DECREASED
[2020-11-02] VITALS (11 sets, daily range): BP systolic 98–122; BP diastolic 44–58
[2020-11-02] MEDS: BLOOD SUGAR DIAGNOSTIC STRIP TEST SCH ×3 (00:27→12:41)
[2020-11-02] MEDS: INSULIN LISPRO 100 UNITS/ML SUBCUT SCH ×3 (00:36→12:41)
[2020-11-02] MEDS: VANCOMYCIN 1 G PREMIX 200 ML IV SCH (05:33)
[2020-11-02] MEDS: MIDODRINE HCL 5MG TABLET PO SCH ×2 (05:34→14:33)
[2020-11-02] MEDS: METOCLOPRAMIDE HCL 10MG/2ML VIAL IV SCH ×2 (05:34→14:28)
[2020-11-02 06:32] LABS: CHLORIDE 107 mEq/L (98-107)
[2020-11-02 06:40] LABS: HEMATOCRIT. 29.4 % (36.0-48.0); HEMOGLOBIN. 9.5 g/dL (12.0-16.0); MEAN CORPUSCULAR HEMOGLOBIN 30.8 pg (28.0-32.0); MEAN CORPUSCULAR VOLUME 94.9 fL (81.0-99.0); MEAN PLATELET VOLUME 10.4 fl (7.4-10.4); PLATELET 134 x1000/uL (130-400); RED BLOOD CELL COUNT 3.09 mill/uL (4.2-5.4); RED CELL DISTRIBUTION WIDTH 19.3 % (11.6-14.6)
[2020-11-02] MEDS: RISPERIDONE 1MG TABLET PO SCH ×2 (08:55→17:54)
[2020-11-02] MEDS: CLOBETASOL 0.05 % CREAM 15GM TOP SCH (08:55)
[2020-11-02] MEDS: NYSTATIN POWDER 15GM TOP SCH ×3 (08:55→17:54)
[2020-11-02 12:22] LABS: PLATELET ESTIMATE NORMAL
[2020-11-02] MEDS ORDERED: HEPARIN 5000 UNITS/ML VIAL SUBCUT SCH (13:34)
== END 2020-11-02 18:45 | DRG 871 ==
LOC: ER 02:33 → EDBEDREQ 05:52 → MICUSO 05:59 → EDBEDREQTM 06:00 → EDBEDREQSVC 06:00 → EDBEDREQ 17:17 → ENRESERV 21:28 → CVICU 10-25 14:06 → 5EST 10-29 17:39 → CVICU 10-30 17:08 → 5EST 10-31 17:30
PROVIDERS: ADMIT Family Medicine Adult Medicine; ATTEND Family Medicine Adult Medicine
PROC: 02HV33Z Insertion of Infusion Device into Superior Vena Cava, Percutaneous Approach (ICD-10-PCS; principal; 2020-10-24)
PROC: B548ZZA Ultrasonography of Superior Vena Cava, Guidance (ICD-10-PCS; 2020-10-24)
DX: A41.02 Sepsis due to Methicillin resistant Staphylococcus aureus (principal); J18.9 Pneumonia, unspecified organism; R65.21 Severe sepsis with septic shock; I50.31 Acute diastolic (congestive) heart failure; R53.2 Functional quadriplegia; I33.0 Acute and subacute infective endocarditis; G93.41 Metabolic encephalopathy; N39.0 Urinary tract infection, site not specified; E46 Unspecified protein-calorie malnutrition; L12.0 Bullous pemphigoid; L03.90 Cellulitis, unspecified; E86.0 Dehydration; G47.33 Obstructive sleep apnea (adult) (pediatric); E66.01 Morbid (severe) obesity due to excess calories; D63.8 Anemia in other chronic diseases classified elsewhere; D69.6 Thrombocytopenia, unspecified; E11.65 Type 2 diabetes mellitus with hyperglycemia; E87.5 Hyperkalemia; I07.1 Rheumatic tricuspid insufficiency; I25.10 Atherosclerotic heart disease of native coronary artery without angina pectoris; I48.0 Paroxysmal atrial fibrillation; I49.3 Ventricular premature depolarization; L30.9 Dermatitis, unspecified; L89.90 Pressure ulcer of unspecified site, unspecified stage; R13.10 Dysphagia, unspecified; I44.0 Atrioventricular block, first degree; L30.4 Erythema intertrigo; L98.499 Non-pressure chronic ulcer of skin of other sites with unspecified severity; E11.51 Type 2 diabetes mellitus with diabetic peripheral angiopathy without gangrene; E11.22 Type 2 diabetes mellitus with diabetic chronic kidney disease; Z20.828 Contact with and (suspected) exposure to other viral communicable diseases; Z78.1 Physical restraint status; Z79.4 Long term (current) use of insulin; Z79.899 Other long term (current) drug therapy; Z86.73 Personal history of transient ischemic attack (TIA), and cerebral infarction without residual deficits; I25.2 Old myocardial infarction; Z91.81 History of falling; Z93.1 Gastrostomy status; Z79.1 Long term (current) use of non-steroidal anti-inflammatories (NSAID); Z68.37 Body mass index [BMI] 37.0-37.9, adult; B96.89 Other specified bacterial agents as the cause of diseases classified elsewhere; I11.0 Hypertensive heart disease with heart failure
CPT/HCPCS: 36415; 71045; 80048; 80053; 80202; 81003; 82962; 83036; 83735; 84484; 85025; 87077; 87186; 87635; 93005; 93306; 93923; 95816; 96365; 99291; A6261; C9803; J1200; J1265; J1630; J1644; J1815; J1940; J2185; J2543; J2765; J3370; J3490; J7030; J7040; J7050; J7060

== ENCOUNTER 2020-11-22 19:27 | Inpatient (IN) | payer MEDICARE, MEDICAID ==
[~2020-11-22] VITALS: Ht 157.5 cm; Wt 101.6 kg
[2020-11-22] MEDS ORDERED: CEFTRIAXONE 1 G PREMIX 50 ML IV ONE (20:15)
[2020-11-22 21:17] LABS: HEMATOCRIT. 25.2 % (36.0-48.0); HEMOGLOBIN. 8.4 g/dL (12.0-16.0); MEAN CORPUSCULAR VOLUME 90.1 fL (81.0-99.0); MEAN PLATELET VOLUME 8.4 fl (7.4-10.4); PLATELET 255 x1000/uL (130-400)
[2020-11-22 21:32] LABS: CHLORIDE 104 mEq/L (98-107)
[2020-11-22 21:51] LABS: PLATELET ESTIMATE NORMAL
[2020-11-22] MEDS ORDERED: ASPIRIN 300MG SUPP PR ONE (22:15)
[2020-11-22] MEDS ORDERED: MEROPENEM 1,000 MG in SODIUM CHLORIDE 0.9% 100 ML IV SCH (22:30)
[2020-11-22] MEDS ORDERED: VANCOMYCIN 1 G PREMIX 200 ML IV SCH (22:30)
[2020-11-22] MEDS ORDERED: SODIUM CHLORIDE 0.9% 1000ML BAG (SEPSIS BOLUS) IV ONE (22:45)
[2020-11-23] VITALS (14 sets, daily range): BP systolic 92–142; BP diastolic 46–102
[2020-11-23] MEDS ORDERED: ACETAMINOPHEN 650MG/20.3ML UDC PO PRN (03:15)
[2020-11-23] MEDS ORDERED: DEXTROSE 50% WATER 50ML SYRINGE IV PRN (03:15)
[2020-11-23] MEDS ORDERED: ONDANSETRON HCL 4MG/2ML INJ IV PRN (03:15)
[2020-11-23] MEDS: PIPERACILLIN/TAZOBACTAM 2.25 G in DEXTROSE 5% WATER 50 ML IV SCH ×3 (05:07→15:25)
[2020-11-23] MEDS: DILTIAZEM HCL 30MG TABLET PO SCH ×3 (06:00→22:00)
[2020-11-23] MEDS: BLOOD SUGAR DIAGNOSTIC STRIP TEST SCH ×3 (06:00→18:54)
[2020-11-23] MEDS: ISOSORB DINIT/HYDRALAZINE HCL 20/37.5MG TABLET PO SCH ×3 (06:00→22:00)
[2020-11-23] MEDS: INSULIN LISPRO 100 UNITS/ML SUBCUT SCH ×3 (06:00→18:00)
[2020-11-23] MEDS ORDERED: PIPERACILLIN/TAZOBACTAM 3.375 G/VIAL IV SCH (06:00)
[2020-11-23] MEDS ORDERED: MINOCYCLINE HCL 100 MG CAPSULE PO SCH (09:00)
[2020-11-23] MEDS: CLOBETASOL 0.05 % CREAM 15GM TOP SCH ×2 (09:00→22:00)
[2020-11-23] MEDS ORDERED: ISOSORB DINIT/HYDRALAZINE HCL 20/37.5MG TABLET PO SCH (10:00)
[2020-11-23] MEDS: ENOXAPARIN 30MG/0.3ML SYR SUBCUT SCH ×2 (10:06→21:59)
[2020-11-23] MEDS: FERROUS SULFATE 325MG TABLET PO SCH (10:07)
[2020-11-23] MEDS: ZINC SULFATE 220 MG ( 50 ) CAPSULE PO SCH (10:07)
[2020-11-23] MEDS: LACTULOSE 20G/30ML UDC PO SCH (10:07)
[2020-11-23] MEDS: SERTRALINE HCL 25MG TABLET PO SCH (10:07)
[2020-11-23] MEDS: GABAPENTIN 100MG CAPSULE PO SCH ×2 (10:07→21:59)
[2020-11-23] MEDS: METFORMIN HCL 500MG TABLET PO SCH ×2 (10:08→18:54)
[2020-11-23] MEDS: PREDNISONE 10MG TABLET PO SCH (10:08)
[2020-11-23] MEDS: MYCOPHENOLATE MOFETIL 500MG TABLET PO SCH ×2 (10:08→21:59)
[2020-11-23] MEDS: SENNOSIDES/DOCUSATE SOD 8.6/50MG TABLET PO SCH (10:08)
[2020-11-23 10:17] LABS: HEMATOCRIT. 28.7 % (36.0-48.0); HEMOGLOBIN. 9.2 g/dL (12.0-16.0); MEAN CORPUSCULAR HEMOGLOBIN 29.6 pg (28.0-32.0); MEAN CORPUSCULAR VOLUME 91.9 fL (81.0-99.0); MEAN PLATELET VOLUME 8.7 fl (7.4-10.4); PLATELET 301 x1000/uL (130-400); RED BLOOD CELL COUNT 3.12 mill/uL (4.2-5.4); RED CELL DISTRIBUTION WIDTH 18.2 % (11.6-14.6)
[2020-11-23 11:00] LABS: CHLORIDE 106 mEq/L (98-107)
[2020-11-23] MEDS: LORATADINE 10MG TABLET PO SCH (12:33)
[2020-11-23] MEDS ORDERED: HYDROXYZINE 25MG TABLET PO PRN (15:00)
[2020-11-23 15:21] LABS: PLATELET ESTIMATE NORMAL
[2020-11-23] MEDS: LACTOBACILLUS GG CAPSULE PO SCH (15:29)
[2020-11-23] MEDS ORDERED: PIPERACILLIN/TAZOBACTAM 3.375 G in DEXT 5% WATER 100 ML IV SCH (16:00)
[2020-11-23] MEDS: MEROPENEM 500 MG in SODIUM CHLORIDE 0.9% 50 ML IV SCH (18:54)
[2020-11-23] MEDS: VANCOMYCIN 1 G PREMIX 200 ML IV SCH (19:38)
[2020-11-24] VITALS (13 sets, daily range): BP systolic 84–124; BP diastolic 46–67
[2020-11-24] MEDS ORDERED: VANCOMYCIN 1250MG in DEXTROSE 5% WATER 250ML IV SCH ×2
[2020-11-24] MEDS: BLOOD SUGAR DIAGNOSTIC STRIP TEST SCH ×4 (00:37→18:59)
[2020-11-24] MEDS: MEROPENEM 500 MG in SODIUM CHLORIDE 0.9% 50 ML IV SCH ×3 (00:37→19:12)
[2020-11-24] MEDS: INSULIN LISPRO 100 UNITS/ML SUBCUT SCH ×4 (06:00→18:00)
[2020-11-24] MEDS: DILTIAZEM HCL 30MG TABLET PO SCH ×3 (06:00→21:21)
[2020-11-24] MEDS: ISOSORB DINIT/HYDRALAZINE HCL 20/37.5MG TABLET PO SCH ×3 (07:07→21:16)
[2020-11-24] MEDS: LACTULOSE 20G/30ML UDC PO SCH (09:00)
[2020-11-24] MEDS: SENNOSIDES/DOCUSATE SOD 8.6/50MG TABLET PO SCH (09:00)
[2020-11-24] MEDS: ZINC SULFATE 220 MG ( 50 ) CAPSULE PO SCH (09:24)
[2020-11-24] MEDS: METFORMIN HCL 500MG TABLET PO SCH ×2 (09:24→17:03)
[2020-11-24] MEDS: GABAPENTIN 100MG CAPSULE PO SCH ×2 (09:24→21:16)
[2020-11-24] MEDS: LACTOBACILLUS GG CAPSULE PO SCH (09:24)
[2020-11-24] MEDS: FERROUS SULFATE 325MG TABLET PO SCH (09:24)
[2020-11-24] MEDS: MYCOPHENOLATE MOFETIL 500MG TABLET PO SCH ×2 (09:25→21:16)
[2020-11-24] MEDS: PREDNISONE 10MG TABLET PO SCH (09:25)
[2020-11-24] MEDS: LORATADINE 10MG TABLET PO SCH (09:25)
[2020-11-24] MEDS: ENOXAPARIN 30MG/0.3ML SYR SUBCUT SCH ×2 (09:26→21:17)
[2020-11-24] MEDS: SERTRALINE HCL 25MG TABLET PO SCH (09:34)
[2020-11-24] MEDS: CLOBETASOL 0.05 % CREAM 15GM TOP SCH ×2 (09:46→21:19)
[2020-11-24] MEDS: VANCOMYCIN 1 G PREMIX 200 ML IV SCH (11:01)
[2020-11-24] MEDS ORDERED: LACTULOSE 20G/30ML UDC GT PRN (18:00)
[2020-11-24] MEDS ORDERED: SENNOSIDES/DOCUSATE SOD 8.6/50MG TABLET GT PRN (18:00)
[2020-11-24 18:15] LABS: CHLORIDE 109 mEq/L (98-107)
[2020-11-24 18:27] LABS: HEMATOCRIT. 25.6 % (36.0-48.0); HEMOGLOBIN. 8.3 g/dL (12.0-16.0); MEAN CORPUSCULAR HEMOGLOBIN 29.7 pg (28.0-32.0); MEAN CORPUSCULAR VOLUME 91.9 fL (81.0-99.0); PLATELET 229 x1000/uL (130-400); RED BLOOD CELL COUNT 2.78 mill/uL (4.2-5.4); RED CELL DISTRIBUTION WIDTH 18.2 % (11.6-14.6)
[2020-11-24 19:21] LABS: PLATELET ESTIMATE NORMAL
[2020-11-25] VITALS (10 sets, daily range): BP systolic 92–129; BP diastolic 43–82
[2020-11-25] MEDS: BLOOD SUGAR DIAGNOSTIC STRIP TEST SCH ×4 (00:15→18:43)
[2020-11-25] MEDS ORDERED: SILVER SULFADIAZINE 1% CREAM 25GM TOP NR (01:00)
[2020-11-25] MEDS: MEROPENEM 500 MG in SODIUM CHLORIDE 0.9% 50 ML IV SCH ×3 (02:38→18:11)
[2020-11-25] MEDS: DIPHENHYDRAMINE 50MG/ML VIAL IV PRN ×2 (02:46→21:55)
[2020-11-25] MEDS: VANCOMYCIN 1 G PREMIX 200 ML IV SCH ×2 (04:38→22:02)
[2020-11-25] MEDS: DILTIAZEM HCL 30MG TABLET PO SCH ×3 (05:23→21:56)
[2020-11-25] MEDS: ISOSORB DINIT/HYDRALAZINE HCL 20/37.5MG TABLET PO SCH ×3 (05:23→21:54)
[2020-11-25] MEDS: INSULIN LISPRO 100 UNITS/ML SUBCUT SCH ×4 (05:33→18:19)
[2020-11-25 06:48] LABS: HEMOGLOBIN. 8.1 g/dL (12.0-16.0); MEAN CORPUSCULAR HEMOGLOBIN 29.9 pg (28.0-32.0); MEAN CORPUSCULAR VOLUME 91.7 fL (81.0-99.0); MEAN PLATELET VOLUME 9.1 fl (7.4-10.4); PLATELET 249 x1000/uL (130-400); RED BLOOD CELL COUNT 2.72 mill/uL (4.2-5.4); RED CELL DISTRIBUTION WIDTH 18.1 % (11.6-14.6)
[2020-11-25 07:14] LABS: CHLORIDE 107 mEq/L (98-107)
[2020-11-25] MEDS: GABAPENTIN 100MG CAPSULE PO SCH ×2 (10:04→21:56)
[2020-11-25] MEDS: ZINC SULFATE 220 MG ( 50 ) CAPSULE PO SCH (10:04)
[2020-11-25] MEDS: LORATADINE 10MG TABLET PO SCH (10:04)
[2020-11-25] MEDS: METFORMIN HCL 500MG TABLET PO SCH ×2 (10:04→18:11)
[2020-11-25] MEDS: FERROUS SULFATE 325MG TABLET PO SCH (10:04)
[2020-11-25] MEDS: SERTRALINE HCL 25MG TABLET PO SCH (10:04)
[2020-11-25] MEDS: MYCOPHENOLATE MOFETIL 500MG TABLET PO SCH ×2 (10:04→21:57)
[2020-11-25] MEDS: LACTOBACILLUS GG CAPSULE PO SCH (10:05)
[2020-11-25] MEDS: PREDNISONE 10MG TABLET PO SCH (10:05)
[2020-11-25] MEDS: ENOXAPARIN 30MG/0.3ML SYR SUBCUT SCH ×2 (10:05→21:55)
[2020-11-25] MEDS: CLOBETASOL 0.05 % CREAM 15GM TOP SCH ×2 (10:07→21:56)
[2020-11-26] VITALS (11 sets, daily range): BP systolic 107–138; BP diastolic 55–82
[2020-11-26] MEDS: BLOOD SUGAR DIAGNOSTIC STRIP TEST SCH ×4 (01:42→18:00)
[2020-11-26] MEDS: INSULIN LISPRO 100 UNITS/ML SUBCUT SCH ×4 (01:46→19:22)
[2020-11-26] MEDS: MEROPENEM 500 MG in SODIUM CHLORIDE 0.9% 50 ML IV SCH ×3 (02:11→19:43)
[2020-11-26] MEDS: DILTIAZEM HCL 30MG TABLET PO SCH ×2 (06:12→14:00)
[2020-11-26] MEDS: ISOSORB DINIT/HYDRALAZINE HCL 20/37.5MG TABLET PO SCH ×2 (06:13→17:08)
[2020-11-26 07:35] LABS: HEMATOCRIT. 23.8 % (36.0-48.0); HEMOGLOBIN. 7.8 g/dL (12.0-16.0); MEAN CORPUSCULAR HEMOGLOBIN 29.9 pg (28.0-32.0); MEAN CORPUSCULAR VOLUME 91.6 fL (81.0-99.0); PLATELET 245 x1000/uL (130-400); RED CELL DISTRIBUTION WIDTH 18.2 % (11.6-14.6)
[2020-11-26 07:55] LABS: CHLORIDE 107 mEq/L (98-107)
[2020-11-26] MEDS: SERTRALINE HCL 25MG TABLET PO SCH (09:45)
[2020-11-26] MEDS: LORATADINE 10MG TABLET PO SCH (09:45)
[2020-11-26] MEDS: METFORMIN HCL 500MG TABLET PO SCH ×2 (09:45→17:07)
[2020-11-26] MEDS: MYCOPHENOLATE MOFETIL 500MG TABLET PO SCH (09:45)
[2020-11-26] MEDS: ZINC SULFATE 220 MG ( 50 ) CAPSULE PO SCH (09:45)
[2020-11-26] MEDS: GABAPENTIN 100MG CAPSULE PO SCH (09:45)
[2020-11-26] MEDS: FERROUS SULFATE 325MG TABLET PO SCH (09:45)
[2020-11-26] MEDS: LACTOBACILLUS GG CAPSULE PO SCH (09:45)
[2020-11-26] MEDS: ENOXAPARIN 30MG/0.3ML SYR SUBCUT SCH (09:46)
[2020-11-26] MEDS: CLOBETASOL 0.05 % CREAM 15GM TOP SCH (11:27)
[2020-11-26] MEDS: PREDNISONE 10MG TABLET PO SCH (11:40)
[2020-11-26 15:13] LABS: PLATELET ESTIMATE NORMAL
[2020-11-26 16:05] LABS: PLATELET ESTIMATE NORMAL
[2020-11-27] MEDS ORDERED: VANCOMYCIN 750 MG PREMIX 150 ML IV SCH (06:00)
== END 2020-11-26 20:17 | DRG 871 ==
LOC: ER 19:27 → ENRESERV 23:26 → 5EST 11-23 01:11
PROVIDERS: ADMIT Internal Medicine; ATTEND Internal Medicine
DX: A41.9 Sepsis, unspecified organism (principal); G93.41 Metabolic encephalopathy; I50.31 Acute diastolic (congestive) heart failure; I21.4 Non-ST elevation (NSTEMI) myocardial infarction; R53.2 Functional quadriplegia; N39.0 Urinary tract infection, site not specified; Z68.41 Body mass index [BMI] 40.0-44.9, adult; L12.0 Bullous pemphigoid; E11.65 Type 2 diabetes mellitus with hyperglycemia; L30.9 Dermatitis, unspecified; I11.0 Hypertensive heart disease with heart failure; E66.01 Morbid (severe) obesity due to excess calories; L89.90 Pressure ulcer of unspecified site, unspecified stage; I07.1 Rheumatic tricuspid insufficiency; E11.51 Type 2 diabetes mellitus with diabetic peripheral angiopathy without gangrene; I48.0 Paroxysmal atrial fibrillation; Z20.828 Contact with and (suspected) exposure to other viral communicable diseases; D63.8 Anemia in other chronic diseases classified elsewhere; R65.20 Severe sepsis without septic shock; E78.5 Hyperlipidemia, unspecified; I44.0 Atrioventricular block, first degree; R13.10 Dysphagia, unspecified; Z86.14 Personal history of Methicillin resistant Staphylococcus aureus infection; Z86.73 Personal history of transient ischemic attack (TIA), and cerebral infarction without residual deficits; Z93.1 Gastrostomy status; Z79.1 Long term (current) use of non-steroidal anti-inflammatories (NSAID); Z79.899 Other long term (current) drug therapy; L98.499 Non-pressure chronic ulcer of skin of other sites with unspecified severity
CPT/HCPCS: 36415; 71045; 80048; 80053; 80202; 82140; 82962; 83036; 83605; 83735; 84145; 84484; 85025; 85651; 87045; 87070; 87077; 87186; 87426; 87449; 89055; 93005; 99291; J1200; J1650; J1815; J2185; J2543; J3370; J7030; J7040; J7050; J7060; J7512; J7517

== ENCOUNTER 2021-02-05 21:35 | Inpatient (IN) | payer MEDICARE, MEDICAID ==
[~2021-02-05] VITALS: Ht 167.6 cm; Wt 89.4 kg
[2021-02-05] MEDS ORDERED: HALOPERIDOL LACTATE 5MG/ML VIAL IM ONE (23:00)
[2021-02-05 23:02] LABS: CLARITY URINE TURBID (CLEAR); COLOR URINE YELLOW (YELLOW); KETONES URINE NEGATIVE (NEGATIVE); LEUKOCYTE ESTERASE URINE 2+ (NEGATIVE); NITRITE URINE POSITIVE (NEGATIVE); OCCULT BLOOD URINE 1+ (NEGATIVE); PH URINE 8.5 (4.5-8.0); PROTEIN URINE 2+ (NEGATIVE); SPECIFIC GRAVITY URINE 1.018 (1.005-1.030); UROBILINOGEN URINE 0.2 E.U./dL (0.2-1.0)
[2021-02-05 23:17] LABS: HEMATOCRIT. 30.6 % (36.0-48.0); HEMOGLOBIN. 9.7 g/dL (12.0-16.0); MEAN CORPUSCULAR HEMOGLOBIN 28.9 pg (28.0-32.0); MEAN CORPUSCULAR VOLUME 91.5 fL (81.0-99.0); MEAN PLATELET VOLUME 8.2 fl (7.4-10.4); PLATELET 170 x1000/uL (130-400); RED BLOOD CELL COUNT 3.35 mill/uL (4.2-5.4); RED CELL DISTRIBUTION WIDTH 19.5 % (11.6-14.6)
[2021-02-05 23:21] LABS: CHLORIDE 100 mEq/L (98-107); PROTHROMBIN TIME 10.9 sec (9.6-11.0)
[2021-02-05] MEDS ORDERED: INSULIN REGULAR (HUMULIN R) 300UNITS/3ML VIAL IV NR (23:30)
[2021-02-05] MEDS ORDERED: DEXTROSE 50% WATER 50ML SYRINGE IV NR (23:30)
[2021-02-05] MEDS ORDERED: SODIUM BICARBONATE 8.4% 1 MEQ/ML 50ML SYR IV NR (23:30)
[2021-02-05] MEDS ORDERED: SODIUM CHLORIDE 0.9% 1000ML BAG (SEPSIS BOLUS) IV NR (23:45)
[2021-02-06] MEDS ORDERED: VANCOMYCIN 1 G PREMIX 200 ML IV NR
[2021-02-06 00:27] LABS: PLATELET ESTIMATE NORMAL
[2021-02-06] MEDS ORDERED: PIPERACILLIN/TAZ 3.375G PREMIX 50 ML IV NR (01:00)
[2021-02-06 03:10] VITALS: BP 125/49
[2021-02-06 04:00] VITALS: BP 125/49
[2021-02-06] MEDS ORDERED: DEXTROSE 50% WATER 50ML SYRINGE IV PRN (05:00)
[2021-02-06] MEDS ORDERED: PIPERACILLIN/TAZOBACTAM 3.375 G/VIAL IV SCH (06:00)
[2021-02-06] MEDS: DILTIAZEM HCL 30MG TABLET GT SCH ×3 (06:01→22:34)
[2021-02-06] MEDS: INSULIN LISPRO 100 UNITS/ML SUBCUT SCH ×4 (06:32→21:00)
[2021-02-06] MEDS: BLOOD SUGAR DIAGNOSTIC STRIP TEST SCH ×3 (06:32→17:43)
[2021-02-06 08:00] VITALS: BP 132/52
[2021-02-06] MEDS: QUETIAPINE FUMARATE 25MG TABLET GT SCH ×3 (08:49→22:36)
[2021-02-06] MEDS: ENOXAPARIN 30MG/0.3ML SYR SUBCUT SCH (08:49)
[2021-02-06] MEDS: PIPERACILLIN/TAZOBACTAM 3.375 G in DEXT 5% WATER 100 ML IV SCH ×2 (08:49→15:43)
[2021-02-06 12:00] VITALS: BP 126/52
[2021-02-06 12:07] LABS: HEMATOCRIT 28.2 % (36.0-48.0); HEMOGLOBIN 9.1 g/dL (12.0-16.0); MEAN CORPUSCULAR HEMOGLOBIN 29.4 pg (28.0-32.0); MEAN CORPUSCULAR VOLUME 90.9 fL (81.0-99.0); PLATELET 149 x1000/uL (130-400); RED CELL DISTRIBUTION WIDTH 19.5 % (11.6-14.6)
[2021-02-06 12:27] LABS: CHLORIDE 102 mEq/L (98-107)
[2021-02-06 12:35] LABS: LDL CHOLESTEROL 60 mg/dL (5-100)
[2021-02-06 12:37] LABS: HDL CHOLESTEROL 96 mg/dL (40-59)
[2021-02-06] MEDS: VANCOMYCIN 750 MG PREMIX 150 ML IV SCH (12:55)
[2021-02-06] MEDS ORDERED: SODIUM POLYSTYRENE SULFONATE 15 G/60 ML BOT PO NR (14:00)
[2021-02-06] MEDS: ISOSORBIDE DINITRATE 10MG TABLET PO SCH ×2 (14:18→17:56)
[2021-02-06] MEDS: ACETYLCYSTEINE 100MG/ML 10% VIAL 4ML INH SCH ×2 (15:50→22:37)
[2021-02-06 16:00] VITALS: BP 120/53
[2021-02-06] MEDS: MYCOPHENOLATE MOFETIL 500MG TABLET PO SCH (22:34)
[2021-02-07] VITALS: BP 132/59
[2021-02-07] MEDS ORDERED: ALBUTEROL (0.083%) 2.5MG/3ML NEB ONE (02:11)
[2021-02-07] MEDS: ACETYLCYSTEINE 100MG/ML 10% VIAL 4ML INH SCH (02:23)
[2021-02-07 04:00] VITALS: BP 127/50
[2021-02-07] MEDS: VANCOMYCIN 750 MG PREMIX 150 ML IV SCH (05:44)
[2021-02-07] MEDS: DILTIAZEM HCL 30MG TABLET GT SCH ×3 (05:44→22:24)
[2021-02-07 06:44] LABS: HEMATOCRIT. 28.1 % (36.0-48.0); HEMOGLOBIN. 8.9 g/dL (12.0-16.0); MEAN CORPUSCULAR VOLUME 91.2 fL (81.0-99.0); MEAN PLATELET VOLUME 8.6 fl (7.4-10.4); PLATELET 134 x1000/uL (130-400); RED BLOOD CELL COUNT 3.08 mill/uL (4.2-5.4); RED CELL DISTRIBUTION WIDTH 19.3 % (11.6-14.6)
[2021-02-07 06:57] LABS: CHLORIDE 103 mEq/L (98-107)
[2021-02-07] MEDS: INSULIN LISPRO 100 UNITS/ML SUBCUT SCH ×4 (07:12→21:00)
[2021-02-07 08:00] VITALS: BP 100/52
[2021-02-07] MEDS: ISOSORBIDE DINITRATE 10MG TABLET PO SCH ×3 (09:00→16:41)
[2021-02-07] MEDS: MYCOPHENOLATE MOFETIL 500MG TABLET PO SCH ×2 (09:19→21:00)
[2021-02-07] MEDS: SERTRALINE HCL 25MG TABLET PO SCH (09:19)
[2021-02-07] MEDS: PREDNISONE 20MG TABLET PO SCH (09:20)
[2021-02-07] MEDS: ENOXAPARIN 30MG/0.3ML SYR SUBCUT SCH (09:21)
[2021-02-07] MEDS: PIPERACILLIN/TAZOBACTAM 3.375 G in DEXT 5% WATER 100 ML IV SCH ×2 (09:25)
[2021-02-07] MEDS: BLOOD SUGAR DIAGNOSTIC STRIP TEST SCH ×3 (11:45→21:00)
[2021-02-07 12:00] VITALS: BP 142/64
[2021-02-07] MEDS ORDERED: SODIUM POLYSTYRENE SULFONATE 15 G/60 ML BOT GT SCH (13:00)
[2021-02-07] MEDS ORDERED: PIPERACILLIN/TAZOBACTAM 3.375 G in DEXT 5% WATER 100 ML IV SCH (15:00)
[2021-02-07 16:00] VITALS: BP 120/51
[2021-02-07 16:24] LABS: PLATELET ESTIMATE NORMAL
[2021-02-07 20:00] VITALS: BP 127/45
[2021-02-07] MEDS ORDERED: CEFTAZIDIME PENTAHYDRATE 1 G in DEXTROSE 5% WATER 50 ML IV SCH (20:00)
[2021-02-07] MEDS: QUETIAPINE FUMARATE 25MG TABLET GT SCH (22:25)
[2021-02-07] MEDS: MEROPENEM 500 MG in SODIUM CHLORIDE 0.9% 50 ML IV SCH (22:31)
[2021-02-08] VITALS: BP 119/47
[2021-02-08] MEDS: VANCOMYCIN 750 MG PREMIX 150 ML IV SCH ×2 (01:22→17:28)
[2021-02-08 04:00] VITALS: BP 129/58
[2021-02-08] MEDS: MEROPENEM 500 MG in SODIUM CHLORIDE 0.9% 50 ML IV SCH ×3 (05:31→21:41)
[2021-02-08] MEDS: DILTIAZEM HCL 30MG TABLET GT SCH ×3 (05:59→21:39)
[2021-02-08] MEDS: BLOOD SUGAR DIAGNOSTIC STRIP TEST SCH ×4 (05:59→21:38)
[2021-02-08] MEDS: INSULIN LISPRO 100 UNITS/ML SUBCUT SCH ×4 (06:00→21:19)
[2021-02-08 07:32] LABS: HEMATOCRIT. 28.4 % (36.0-48.0); HEMOGLOBIN. 9.2 g/dL (12.0-16.0); MEAN CORPUSCULAR HEMOGLOBIN 29.6 pg (28.0-32.0); MEAN CORPUSCULAR VOLUME 91.4 fL (81.0-99.0); MEAN PLATELET VOLUME 9.5 fl (7.4-10.4); PLATELET 144 x1000/uL (130-400); RED BLOOD CELL COUNT 3.11 mill/uL (4.2-5.4); RED CELL DISTRIBUTION WIDTH 19.8 % (11.6-14.6)
[2021-02-08 08:00] LABS: CHLORIDE 107 mEq/L (98-107)
[2021-02-08] MEDS: QUETIAPINE FUMARATE 25MG TABLET GT SCH ×2 (08:39→21:39)
[2021-02-08] MEDS: PREDNISONE 20MG TABLET PO SCH (08:39)
[2021-02-08] MEDS: ISOSORBIDE DINITRATE 10MG TABLET PO SCH ×3 (08:39→17:27)
[2021-02-08] MEDS: MYCOPHENOLATE MOFETIL 500MG TABLET PO SCH ×2 (08:39→21:39)
[2021-02-08] MEDS: ENOXAPARIN 30MG/0.3ML SYR SUBCUT SCH (08:40)
[2021-02-08] MEDS: SERTRALINE HCL 25MG TABLET PO SCH (08:40)
[2021-02-08 12:00] VITALS: BP 117/54
[2021-02-08 12:40] LABS: PLATELET ESTIMATE NORMAL
[2021-02-08 16:00] VITALS: BP 133/51
[2021-02-08] MEDS: ZINC SULFATE 220 MG ( 50 ) CAPSULE GT SCH (17:27)
[2021-02-08] MEDS: ASCORBIC ACID 250 MG TABLET GT SCH (17:28)
[2021-02-08] MEDS: ACETAMINOPHEN 325MG TABLET PO PRN (17:42)
[2021-02-08 20:27] VITALS: BP 138/70
[2021-02-09] MEDS: ACETYLCYSTEINE 100MG/ML 10% VIAL 4ML INH SCH (00:21)
[2021-02-09 00:53] VITALS: BP 138/55
[2021-02-09 04:00] VITALS: BP 136/51
[2021-02-09] MEDS: MEROPENEM 500 MG in SODIUM CHLORIDE 0.9% 50 ML IV SCH ×2 (05:56→15:00)
[2021-02-09] MEDS: DILTIAZEM HCL 30MG TABLET GT SCH ×2 (05:56→14:00)
[2021-02-09] MEDS: INSULIN LISPRO 100 UNITS/ML SUBCUT SCH ×3 (06:46→18:25)
[2021-02-09] MEDS: BLOOD SUGAR DIAGNOSTIC STRIP TEST SCH ×3 (06:46→16:45)
[2021-02-09 08:00] VITALS: BP 127/52
[2021-02-09] MEDS: ZINC SULFATE 220 MG ( 50 ) CAPSULE GT SCH (08:27)
[2021-02-09] MEDS: ASCORBIC ACID 250 MG TABLET GT SCH (08:28)
[2021-02-09] MEDS: QUETIAPINE FUMARATE 25MG TABLET GT SCH (08:28)
[2021-02-09] MEDS: PREDNISONE 20MG TABLET PO SCH (08:28)
[2021-02-09] MEDS: ISOSORBIDE DINITRATE 10MG TABLET PO SCH ×3 (08:28→17:00)
[2021-02-09] MEDS: ACETAMINOPHEN 325MG TABLET PO PRN (08:28)
[2021-02-09] MEDS: MYCOPHENOLATE MOFETIL 500MG TABLET PO SCH (08:28)
[2021-02-09] MEDS: SERTRALINE HCL 25MG TABLET PO SCH (08:28)
[2021-02-09] MEDS: ENOXAPARIN 30MG/0.3ML SYR SUBCUT SCH (09:26)
[2021-02-09 12:00] VITALS: BP 115/52
[2021-02-09] MEDS: VANCOMYCIN 750 MG PREMIX 150 ML IV SCH (12:36)
[2021-02-09 16:00] VITALS: BP 128/52
[2021-02-09 17:34] VITALS: BP 128/52
== END 2021-02-09 18:50 | DRG 871 ==
LOC: ER 21:35 → 5WST 02-06 00:07 → EDBEDREQ 02-06 00:10 → EDBEDREQDT 02-06 00:10 → EDBEDREQTM 02-06 00:10 → ENRESERV 02-06 01:37
PROVIDERS: ADMIT Internal Medicine; ATTEND Internal Medicine
DX: A41.02 Sepsis due to Methicillin resistant Staphylococcus aureus (principal); L89.153 Pressure ulcer of sacral region, stage 3; G93.41 Metabolic encephalopathy; R53.2 Functional quadriplegia; N39.0 Urinary tract infection, site not specified; E44.1 Mild protein-calorie malnutrition; I50.32 Chronic diastolic (congestive) heart failure; L12.0 Bullous pemphigoid; E87.1 Hypo-osmolality and hyponatremia; B96.1 Klebsiella pneumoniae [K. pneumoniae] as the cause of diseases classified elsewhere; D64.9 Anemia, unspecified; E66.01 Morbid (severe) obesity due to excess calories; E87.5 Hyperkalemia; I11.0 Hypertensive heart disease with heart failure; R09.89 Other specified symptoms and signs involving the circulatory and respiratory systems; I48.91 Unspecified atrial fibrillation; E11.51 Type 2 diabetes mellitus with diabetic peripheral angiopathy without gangrene; S80.821A Blister (nonthermal), right lower leg, initial encounter; X58.XXXA Exposure to other specified factors, initial encounter; L89.90 Pressure ulcer of unspecified site, unspecified stage; R13.10 Dysphagia, unspecified; Z68.31 Body mass index [BMI] 31.0-31.9, adult; Z86.73 Personal history of transient ischemic attack (TIA), and cerebral infarction without residual deficits; Z93.1 Gastrostomy status; Y93.89 Activity, other specified; Y92.89 Other specified places as the place of occurrence of the external cause; Y99.8 Other external cause status
CPT/HCPCS: 36415; 71045; 80048; 80053; 80061; 80202; 81003; 82040; 82962; 83036; 83605; 83880; 84134; 84145; 84484; 85025; 85027; 87077; 87186; 93005; 93306; 94640; 96374; 99291; C1893; J0713; J1630; J1650; J1815; J2185; J2543; J3370; J3490; J7040; J7060; J7512; J7517; J7608; A4315